=== PATIENT | male | born 2000 | race Caucasian/White ===

== ENCOUNTER 2023-09-05 22:43 | Emergency (ER) | payer OTHER, MEDICAID, SELFPAY ==
[2023-09-05 23:04] VITALS: BP 119/79; PULSE 72; RESP 16; TEMP 36.4; O2SAT 99; BMI 28.1
--- NOTE | 2023-09-05 23:10 | DI.RAD.S_ITS ---
PROCEDURE: XR SHOULDER RT MIN 2V INDICATIONS: right shoulder pain x 3 days TECHNIQUE: 3 views of the shoulder were acquired. COMPARISON: None. FINDINGS: Bones: No acute fractures or dislocations. No suspicious bony lesions. Visualized ribs appear intact. Soft tissues: No suspicious soft tissue calcifications. IMPRESSION: No acute osseous abnormality. If there is continued clinical concern or persistent symptoms, repeat radiographs or cross-sectional imaging (e.g. CT, MRI) may be helpful for further evaluation. Approved by: Isaak Beal M.D. on 09/05/2023 at 23:29
--- NOTE | 2023-09-06 00:43 | ED.EXTPRO ---
HPI - Extremity Problem General Chief complaint: Extremity Problem,Nontraumatic Stated complaint: Rt shoulder and back px Time Seen by Provider: 09/06/23 00:39 Source: patient Mode of arrival: Ambulatory History of Present Illness HPI Narrative: Patient is a healthy 23-year-old male who presents today with right shoulder pain. He reports it has been ongoing for last 2-3 days. He does not remember doing anything to it. He says it kind of aches he has no numbness tingling weakness. He does not like taking medications so he did not take any jxzy-rhi-cnvakym meds. He kept trying to pop it back in but it does not seem to be out. Related Data Home Medications Medication Instructions Recorded Confirmed No Known Home Medications 09/05/23 09/05/23 Allergies Allergy/AdvReac Type Severity Reaction Status Date / Time methylphenidate Allergy Unknown Verified 09/05/23 23:04 [From Definition 6] Patient History Social History Smoking Status: Current every day smoker Smoking Status: Current every day smoker tobacco type: vaping Substance Use Type: marijuana Exam Initial Vital Signs Initial Vital Signs: Vital Signs Temperature 97.6 F 09/05/23 23:04 Pulse Rate 72 09/05/23 23:04 Respiratory Rate 16 09/05/23 23:04 Blood Pressure 119/79 09/05/23 23:04 Pulse Oximetry 99 09/05/23 23:04 Oxygen Delivery Method Room Air 09/05/23 23:04 GENERAL: Well-appearing, well-nourished and in no acute distress. CARDIOVASCULAR: peripheral pulses in tact, cap refill <2 sec RESPIRATORY: No respiratory distress, speaks in full sentences without difficulty EXTREMITIES: Normal range of motion, no clubbing or edema. Neurovascularly intact Right shoulder able to touch left shoulder with right hand full range of motion sensation and deltoid intact reason meet and ulnar nerve sensation and motor intact good strong distal radial pulse no evidence of erythema or trauma NEUROLOGICAL: Cranial nerves II through XII grossly intact. Normal gait and speech. SKIN: Warm, dry, no petechiae, no rashes or lesions. Course Orders Ordered: ED Orders 09/05/23 23:10 XR shoulder RT min 2V Stat Vital Signs Vital signs: Vital Signs - 8 hr 09/05/23 23:04 09/06/23 01:00 Temperature 97.6 F Pulse Rate 72 70 Respiratory Rate 16 15 Blood Pressure 119/79 114/55 L Pulse Oximetry 99 98 Oxygen Delivery Method Room Air Room Air MDM - Extremity (Nontraumatic) Imaging Data Extremity x-ray #1: Radiologist's Impression: PROCEDURE: XR SHOULDER RT MIN 2V INDICATIONS: right shoulder pain x 3 days TECHNIQUE: 3 views of the shoulder were acquired. COMPARISON: None. FINDINGS: Bones: No acute fractures or dislocations. No suspicious bony lesions. Visualized ribs appear intact. Soft tissues: No suspicious soft tissue calcifications. IMPRESSION: No acute osseous abnormality. If there is continued clinical concern or persistent symptoms, repeat radiographs or cross-sectional imaging (e.g. CT, MRI) may be helpful for further evaluation. Approved by: Isaak Beal M.D. on 09/05/2023 at 23:29 [facility] Narrative Medical decision making narrative: Patient is a healthy 23-year-old male who presents today with right shoulder pain. Denies any injury he is currently sleeping but easily arousable. He has full range of motion minimally tender no swelling no erythema good sensation. No concern for septic joint x-ray has been reviewed and negative. I suspect some sort of sprain. Discharge Plan Departure Patient Disposition: Home Clinical Impression: Sprain of right shoulder Instructions: DI for Shoulder Pain Activity Restrictions/Additional Instructions: *You have been diagnosed with right shoulder sprain *What to do: At this time your x-ray is negative for fracture may ice 20-30 minutes at a time *Continue to take medications as directed Tylenol 1000 mg every 6 hours if needed for joof-lc-djfqlmjk pain Motrin 600 mg every 6 hours if needed for dzwi-di-wmplqhiq pain *Follow up with your primary care provider in 2-3 days or call [phone] *Return to ER if you should have increasing pain numbness tingling weakness or any new, worsening or concerning symptoms Prescriptions: No Action No Known Home Medications Referrals: Galo,MD Tino [Primary Care Provider] - Stand Alone Forms: Patient Portal/API
--- NOTE | 2023-09-06 00:58 | PC.NURSE ---
Pt has been dealing with chronic back pain for the last 2 years. Only going to ER for treatment, advised pt to follow up with his PCP to obtain a referral to a specialist. Currently pt takes muscle relaxers only.
[2023-09-06 01:00] VITALS: BP 114/55; PULSE 70; RESP 15; O2SAT 98
== END 2023-09-06 01:01 | disposition home or self-care (01) ==
PROVIDERS: Emergency Provider Emergency Medicine
DX: S43.401A Unspecified sprain of right shoulder joint, initial encounter (principal); X58.XXXA Exposure to other specified factors, initial encounter
CPT/HCPCS: 73030; 99281; 99283

== ENCOUNTER 2024-04-18 13:54 | Emergency (ER) | payer OTHER, SELFPAY ==
[2024-04-18 13:56] VITALS: BP 123/76; PULSE 82; RESP 16; TEMP 36.3; O2SAT 99; BMI 33.6
[2024-04-18 14:31] LABS: Appearance Urine UA CLEAR; Bilirubin Urine UA NEGATIVE (NEGATIVE); Color Urine UA YELLOW; Glucose Urine UA NEGATIVE (Negative); Ketones Urine UA NEGATIVE (NEGATIVE); Leukocyte Esterase Urine UA NEGATIVE (NEGATIVE); Nitrite Urine UA NEGATIVE (Negative); Occult Blood Urine UA TRACE-INTACT (Negative); Protein Urine UA NEGATIVE (Negative); Specific Gravity Urine UA 1.025 (1.000-1.035); Urobilinogen Urine UA 0.2 E.U./dL (0.2)
[2024-04-18 14:38] LABS: Bacteria Urine None Seen; Culture Indicated Urine Cult Not Indicated; RBC Urine 1-5/HPF (0-5/HPF); Squamous Epithelial Cell Urine None Seen (0-5/HPF); Urine Volume 10mL (spun); WBC Urine 1-5/HPF (0-5/HPF)
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
--- NOTE | 2024-04-18 15:04 | DI.US.S_ITS ---
PROCEDURE: US RENAL COMPLETE INDICATIONS: hematuria; l flank pain TECHNIQUE: Real-time scanning was performed of the kidneys and bladder, with image documentation. COMPARISON: None. FINDINGS: Kidneys: Kidneys are normal in size. Right kidney measures 10.7 cm long; left kidney measures 11.2 cm long. Right renal cortical thickness is 1.7 cm; left renal cortical thickness is 1.9 cm. Renal cortical echotexture is normal. No hydronephrosis or nephrolithiasis. No suspicious solid mass lesions. Bladder: Pre-void bladder volume is 10.2 mL. Pre-void images demonstrate no intraluminal masses or stones. On pre-void images, no ureteral jets are noted with color Doppler interrogation. (Of note, ureteral jets may not be detectable in up to 25% of cases due to insufficient differences in specific gravity between ureteral and bladder urine). Miscellaneous: No free pelvic fluid. IMPRESSION: Unremarkable ultrasound examination of bilateral kidneys and partially distended urinary bladder. Dictated by: Scott Penny M.D. on 04/18/2024 at 18:04 Approved by: Scott Penny M.D. on 04/18/2024 at 18:05
--- NOTE | 2024-04-18 15:04 | DI.RAD.S_ITS ---
PROCEDURE: XR KUB INDICATIONS: hematuria, l flank pain yesterday TECHNIQUE: One view of the abdomen acquired. COMPARISON: None. FINDINGS: Surgical changes and devices: None. Bowel: Bowel gas pattern is normal. Soft tissues: Within the pelvis bilaterally there are calcifications in the general region of the expected course of the distal ureters bilaterally. Those calcifications on the left are more prominent and may represent distal ureteral stones. Those on the right are likely phleboliths.. Visualized solid organ contours appear normal in size. Bones: No suspicious bony lesions. IMPRESSION: Asymmetric calcifications more suspicious at the lower left pelvis than that on the right. Ultrasound scanning is scheduled. CT scanning may become necessary for definitive diagnosis of distal ureteral stone as cause of this appearance. Dictated by: Parker Torres M.D. on 04/18/2024 at 15:26 Approved by: Parker Torres M.D. on 04/18/2024 at 15:27
[2024-04-18 15:56] LABS: Urine N gonorrhoeae NOT DETECTED
[2024-04-18 15:59] LABS: Urine Chlamydia NOT DETECTED
[2024-04-18 18:55] VITALS: BP 114/64; PULSE 74; RESP 15; O2SAT 100
== END 2024-04-18 18:56 | disposition home or self-care (01) ==
PROVIDERS: Emergency Medicine; Emergency Provider Physician Assistant
DX: R31.9 Hematuria, unspecified (principal); N34.2 Other urethritis; R10.9 Unspecified abdominal pain; F17.290 Nicotine dependence, other tobacco product, uncomplicated
CPT/HCPCS: 74018; 76770; 81001; 87491; 87591; 99281; 99283

== ENCOUNTER 2024-10-29 23:07 | Emergency (ER) | payer OTHER, SELFPAY ==
[2024-10-29 23:12] VITALS: BP 125/75; PULSE 77; RESP 18; TEMP 36.6; O2SAT 98; BMI 29.7
--- NOTE | 2024-10-29 23:20 | PC.NURSE ---
see triage note for details. pt aao x 3, mucous membranes moist, resp even and unlabored, pt laughing and joking in triage
--- NOTE | 2024-10-30 00:12 | ED_ITS ---
HPI - Nausea/Vomiting/Diarrhea General Chief complaint: Nausea/Vomiting/Diarrhea Stated complaint: n/v (abd pain) Time Seen by Provider: 10/30/24 00:04 Source: patient Mode of arrival: Ambulatory History of Present Illness HPI Narrative: Patient is a healthy 24-year-old male presenting today with vomiting and diarrhea. He reports a vomiting started today however he has had diarrhea off and on for about 2 weeks. Sometimes there is blood mixed in it. He has frequent liquidy stools every couple of days. Abdomen is sometimes tender. No one else is sick at home. He has not been traveling, no camping. He reports some dizziness lightheadedness but no passing out. Patient reports he has always had some blood in his stool for as long as he can remember. Related Data Previous Rx's ?Medication ?Instructions ?Recorded ondansetron 4 mg disintegrating 4 mg PO Q8H PRN nausea and 10/30/24 tablet vomiting #10 tabs Allergies Allergy/AdvReac Type Severity Reaction Status Date / Time methylphenidate (From Allergy Unknown Verified 09/05/23 23:04 Concerta) Patient History tobacco type: vaping Exam Initial Vital Signs Initial Vital Signs: Vital Signs Temperature 98 F 10/29/24 23:12 Pulse Rate 77 10/29/24 23:12 Respiratory Rate 18 10/29/24 23:12 Blood Pressure 125/75 10/29/24 23:12 Pulse Oximetry 98 10/29/24 23:12 Oxygen Delivery Method Room Air 10/29/24 23:12 GENERAL: Alert very well-appearing 24-year-old male and in no acute distress. HEENT: Head atraumatic,EOMI, pupils reactive, face symmetric, moist mucous membranes CARDIOVASCULAR: Regular rate and rhythm without murmurs, rubs or gallops. RESPIRATORY: Breath sounds equal bilaterally, no wheezes rales or rhonchi. ABDOMEN: Soft, nontender. Normoactive bowel sounds all 4 quadrants. No guarding or rebound. : No CVA tenderness EXTREMITIES: Normal range of motion, no clubbing or edema. Neurovascularly intact NEUROLOGICAL: Alert and oriented x4.Normal gait and speech. Cranial nerves II through XII grossly intact. SKIN: Warm, dry, no laceration, no petechiae, no rashes or lesions. Course Orders Ordered: ED Orders 10/30/24 00:50 CBC Auto Diff [Complete Blood Count AUTO DIFF] Stat CMP [Comprehensive Metabolic Panel] Stat Discontinued Medications Ondansetron HCl (Ondansetron 4 Mg/2 Ml Inj) 4 mg IV NOW ONE Stop: 10/30/24 00:26 Last Admin: 10/30/24 00:41 Dose: 4 mg Documented By: SHAVONNE Vital Signs Vital signs: Vital Signs - 8 hr 10/29/24 23:12 10/30/24 02:03 Temperature 98 F Pulse Rate 77 64 Respiratory Rate 18 18 Blood Pressure 125/75 109/58 L Pulse Oximetry 98 100 Oxygen Delivery Method Room Air Room Air MDM - Nausea/Vomiting/Diarrhea Lab Data 10/30/24 00:50 10/30/24 00:50 Labs: Lab Results 10/30/24 Range/Units 00:50 WBC 9.1 (4.5-11.0) X10^3/uL RBC 4.72 (4.5-5.9) X10^6/uL Hgb 14.2 (13.5-17.5) g/dL Hct 40.7 L (41-53) % MCV 86.2 (80-100) fL MCH 30.2 (26-34) PG MCHC 35.0 (30-36) % RDW 13.3 (11.6-14.8) % Plt Count 242 (150-400) X10^3/uL Neut % (Auto) 49.1 L (50-75) % Lymph % (Auto) 34.4 (25-40) % [place] % (Auto) 10.0 (3-14) % Eos % (Auto) 5.5 H (2-4) % Baso % (Auto) 1.0 (0-2) % Neut # (Auto) 4400 (2789-6007) /uL Lymph # (Auto) 3100 (6625-7463) /uL [place] # (Auto) 900 (0-900) /uL Eos # (Auto) 500 H (0-450) /uL Baso # (Auto) 100 (0-100) /uL Sodium 139 (137-145) mmol/L Potassium 3.8 (3.4-5.1) mmol/L Chloride 104 (98-107) mmol/L Carbon Dioxide 25 (22-32) mmol/L BUN 10 (9-20) mg/dL Creatinine 0.84 (0.66-1.25) mg/dL Estimated GFR > 60 (>60) mL/min BUN/Creatinine Ratio 11.9 (6-22) Glucose 87 (70-99) mg/dL Calcium 9.0 (8.4-10.2) mg/dL Total Bilirubin 0.3 (0.2-1.3) mg/dL AST 36 (17-59) IU/L ALT 38 (<50) IU/L Alkaline Phosphatase 68 (38-126) U/L Total Protein 7.4 (6.3-8.2) g/dL Albumin 4.4 (3.5-5.0) g/dL Globulin 3.0 (1.7-4.1) g/dL Albumin/Globulin Ratio 1.5 (1.0-2.8) MDM Narrative Medical decision making narrative: Patient is a well-appearing 24-year-old male who presents today with ongoing diarrhea vomiting. He has no fever no chills. Abdomen is soft nontender no peritoneal signs. Vitals are stable. Blood work has been reviewed no leukocytosis no anemia no electrolyte abnormality no JOHNATHON no evidence of dehydration Patient has not had a bowel movement here in the ED no GI panel collected At this time no need for any kind of imaging. Discussed at length with patient need for outpatient follow-up and outpatient colonoscopy especially if he continues to have bloody stool. This started no need for any further ED evaluation Differential diagnosis includes bacterial gastroenteritis viral gastroenteritis inflammatory bowel disease colon cancer polyps Discharge Plan Departure Patient Disposition: Home Clinical Impression: Gastroenteritis Instructions: DI for Viral Gastroenteritis -- Adult Activity Restrictions/Additional Instructions: *You have been diagnosed with gastritis *What to do: At this time I do recommend an outpatient colonoscopy. If you can give a stool sample with your primary that might also be indicated. *Continue to take medications as directed Tylenol Motrin as needed Zofran 4 mg every 8 hours if needed for nausea or vomit *Follow up with your primary care provider in 2-3 days or call [phone] *Return to ER if you should have increasing abdominal pain nausea vomiting diarrhea or any new, worsening or concerning symptoms Prescriptions: New ondansetron 4 mg tablet,disintegrating 4 mg PO Q8H PRN (Reason: nausea and vomiting) Qty: 10 0RF Referrals: Miscellaneous,Doctor[facility] [Primary Care Provider, Medical] Stand Alone Forms: Patient Portal/API
[2024-10-30] MEDS: ONDANSETRON 4 MG/2 ML INJ IV (00:41)
[2024-10-30 00:59] LABS: Add Manual Diff / Slide Review NO; Hematocrit 40.7 % (41-53); Hemoglobin 14.2 g/dL (13.5-17.5); Lymphocytes Absolute Auto 3100 /uL (1100-4500); Mean Corpuscular HGB Conc 35.0 % (30-36); Mean Corpuscular Hemoglobin 30.2 PG (26-34); Mean Corpuscular Volume 86.2 fL (80-100); Platelet Count 242 X10^3/uL (150-400)
[2024-10-30 01:42] LABS: Alanine Aminotransferase 38 IU/L (<50); Albumin 4.4 g/dL (3.5-5.0); Albumin Globulin Ratio 1.5 (1.0-2.8); Alkaline Phosphatase 68 U/L (38-126); Blood Urea Nitrogen 10 mg/dL (9-20); Calcium 9.0 mg/dL (8.4-10.2); Carbon Dioxide 25 mmol/L (22-32); Chloride 104 mmol/L (98-107); Estimated Glomerular Filt Rate > 60 mL/min (>60); Globulin 3.0 g/dL (1.7-4.1); Glucose 87 mg/dL (70-99); HEMOLYSIS < 15 (0-50); Potassium 3.8 mmol/L (3.4-5.1); Sodium 139 mmol/L (137-145); Total Protein 7.4 g/dL (6.3-8.2)
[2024-10-30 02:03] VITALS: BP 109/58; PULSE 64; RESP 18; O2SAT 100
== END 2024-10-30 02:07 | disposition home or self-care (01) ==
PROVIDERS: Emergency Provider Emergency Medicine
DX: K52.9 Noninfective gastroenteritis and colitis, unspecified (principal)
CPT/HCPCS: 36415; 80053; 85025; 96374; 99284; J2405

== ENCOUNTER 2024-11-27 19:51 | Emergency (ER) | payer OTHER, SELFPAY ==
[2024-11-27 19:54] VITALS: BP 145/78; PULSE 85; RESP 17; TEMP 36.6; O2SAT 97; BMI 32.8
--- NOTE | 2024-11-27 20:23 | PC.NURSE ---
pt c/o diffuse abd pain with the worse in the lower abd, this has been an on going problem for the pt he has been to the ED and to [facility] without any dx pt has been referred to a GI dr but has not heard back about an apt he does not have a PCP and is unable to get an apt for months, so he goes to the [facility], pt was told when he was about 15 that he might have Chrons but was never tested for it. pt has intermittent abd pain, with diarrhea eating will cause the diarrhea but it does not matter what he eats. pt was seen here about a month ago for the same and was told he had gastroenteritis only labs were done no radiology, and the problem has continued
[2024-11-27 20:25] LABS: Add Manual Diff / Slide Review NO; Hematocrit 41.1 % (41-53); Hemoglobin 14.2 g/dL (13.5-17.5); Lymphocytes Absolute Auto 1500 /uL (1100-4500); Mean Corpuscular HGB Conc 34.6 % (30-36); Mean Corpuscular Hemoglobin 29.9 PG (26-34); Mean Corpuscular Volume 86.6 fL (80-100); Platelet Count 264 X10^3/uL (150-400)
[2024-11-27 20:36] LABS: Alanine Aminotransferase 40 IU/L (<50); Albumin 4.4 g/dL (3.5-5.0); Albumin Globulin Ratio 1.4 (1.0-2.8); Alkaline Phosphatase 79 U/L (38-126); Blood Urea Nitrogen 10 mg/dL (9-20); Calcium 8.7 mg/dL (8.4-10.2); Carbon Dioxide 18 mmol/L (22-32); Chloride 107 mmol/L (98-107); Estimated Glomerular Filt Rate > 60 mL/min (>60); Globulin 3.1 g/dL (1.7-4.1); Glucose 154 mg/dL (70-99); HEMOLYSIS < 15 (0-50); Lipase 52 U/L (23-300); Potassium 3.6 mmol/L (3.4-5.1); Sodium 137 mmol/L (137-145); Total Protein 7.5 g/dL (6.3-8.2)
--- NOTE | 2024-11-27 21:00 | ED_ITS ---
HPI - Abdominal Pain General Chief Complaint: Abdominal Pain Stated Complaint: abd pain x 3 weeks Time Seen by Provider: 11/27/24 20:59 Source: patient Mode of arrival: Ambulatory History of Present Illness HPI narrative: 24-year-old male reports ongoing abdominopelvic problems and chronic diarrhea. Reports multiple presentations to [facility] where he was given pill medications and had labs done but does not recall any specific abdominal imaging. Has had ongoing loose stools for many months, no black or red or mucoid component. Seen exposure to antibiotics. Does not recall any specific diagnosis of Crohn's disease, ulcerative colitis, irritable bowel syndrome, no prior upper or lower endoscopy evaluations. Has given stool specimens in the past that have reportedly been negative. No change in diet apparently attempted to see if it would improve diarrheal or abdominal discomfort symptoms. No fevers or chills. No painful or frequent urination. No nausea or vomiting. No chest pain or shortness of breath. They had worsening of symptoms over the last 3 weeks, decided that he should get checked out now, not particularly worse today or yesterday. Related Data Previous Rx's ?Medication ?Instructions ?Recorded ondansetron 4 mg disintegrating 4 mg PO Q8H PRN nausea and 10/30/24 tablet vomiting #10 tabs Allergies Allergy/AdvReac Type Severity Reaction Status Date / Time methylphenidate (From Allergy Unknown Verified 11/27/24 19:54 Concerta) Patient History Social History Smoking Status: Current every day smoker Smoking Status: Current every day smoker tobacco type: vaping Exam Narrative Exam Narrative: GENERAL: Well-developed patient, in mild distress. HEAD: Atraumatic. Normocephalic. EYES: Pupils equal round and reactive. Extraocular motions intact. No scleral icterus. No injection or drainage. ENT: Nose without bleeding, purulent drainage. Throat without erythema, tonsillar hypertrophy or exudate. Airway patent. NECK: Trachea midline. Non tender CARDIOVASCULAR: Regular rate and rhythm without murmurs, gallops, or rubs. RESPIRATORY: Clear to auscultation. Breath sounds equal bilaterally. No wheezes, rales, or rhonchi. GASTROINTESTINAL: Abdomen soft, non-tender, nondistended. EXTREMITIES: No edema or joint tenderness. BACK: Nontender without deformity or crepitance. No flank tenderness. NEURO: AOx3. Motor functions grossly nonfocal. SKIN: No rash or erythema of visible areas Initial Vital Signs Initial Vital Signs: Vital Signs Temperature 98 F 11/27/24 19:54 Pulse Rate 85 11/27/24 19:54 Respiratory Rate 17 11/27/24 19:54 Blood Pressure 145/78 H 11/27/24 19:54 Pulse Oximetry 97 11/27/24 19:54 Oxygen Delivery Method Room Air 11/27/24 19:54 Course Orders Ordered: ED Orders 11/27/24 20:59 CT abdomen pelvis w con Stat Discontinued Medications Ondansetron HCl (Ondansetron 4 Mg/2 Ml Inj) 4 mg IV NOW PRN PRN Reason: Nausea And Vomiting Ondansetron HCl (Ondansetron 4 Mg Odt) 4 mg PO NOW PRN PRN Reason: Nausea And Vomiting Vital Signs Vital signs: Vital Signs - 8 hr 11/28/24 01:01 Pulse Rate 70 Respiratory Rate 18 Blood Pressure 117/77 Pulse Oximetry 100 Oxygen Delivery Method Room Air MDM - Abdominal Pain Lab Data Attestation: I reviewed the patient's lab results. Lab results narrative: White blood cell count 5900, hemoglobin 14.2, platelets adequate. Glucose 154. Normal renal function, electrolytes. Serum CO2 18 decreased. Liver functions and lipase normal. 11/27/24 20:10 11/27/24 20:10 Labs: Lab Results 11/27/24 Range/Units 20:10 WBC 5.9 (4.5-11.0) X10^3/uL RBC 4.75 (4.5-5.9) X10^6/uL Hgb 14.2 (13.5-17.5) g/dL Hct 41.1 (41-53) % MCV 86.6 (80-100) fL MCH 29.9 (26-34) PG MCHC 34.6 (30-36) % RDW 12.8 (11.6-14.8) % Plt Count 264 (150-400) X10^3/uL Neut % (Auto) 59.0 (50-75) % Lymph % (Auto) 25.5 (25-40) % [place] % (Auto) 8.1 (3-14) % Eos % (Auto) 6.7 H (2-4) % Baso % (Auto) 0.7 (0-2) % Neut # (Auto) 3500 (4518-4587) /uL Lymph # (Auto) 1500 (1897-9929) /uL [place] # (Auto) 500 (0-900) /uL Eos # (Auto) 400 (0-450) /uL Baso # (Auto) 0 (0-100) /uL Sodium 137 (137-145) mmol/L Potassium 3.6 (3.4-5.1) mmol/L Chloride 107 (98-107) mmol/L Carbon Dioxide 18 L (22-32) mmol/L BUN 10 (9-20) mg/dL Creatinine 0.78 (0.66-1.25) mg/dL Estimated GFR > 60 (>60) mL/min BUN/Creatinine Ratio 12.8 (6-22) Glucose 154 H (70-99) mg/dL Calcium 8.7 (8.4-10.2) mg/dL Total Bilirubin 0.4 (0.2-1.3) mg/dL AST 32 (17-59) IU/L ALT 40 (<50) IU/L Alkaline Phosphatase 79 (38-126) U/L Total Protein 7.5 (6.3-8.2) g/dL Albumin 4.4 (3.5-5.0) g/dL Globulin 3.1 (1.7-4.1) g/dL Albumin/Globulin Ratio 1.4 (1.0-2.8) Lipase 52 (23-300) U/L Imaging Data CT scan - abdomen/pelvis: Radiologist's Impression: [address] [address] [address] Scan Report Signed Patient: Trace Kelly MR#: [id number] : 2000 Acct:[id number] Age/Sex: 24 / M Date of Service: 11/27/24 Loc: ED Accession Number: [id number] Procedure: CT abdomen pelvis w con Ordering Provider: Arnold Mcmahan MD PROCEDURE: CT ABDOMEN PELVIS W CON INDICATIONS: abd pain TECHNIQUE: After the administration of intravenous contrast, axial sections acquired from the lung bases to the pubic symphysis. Coronal and sagittal reformats were performed. For radiation dose reduction, the following was used: automated exposure control, adjustment of mA and/or kV according to patient size. COMPARISON: [facility], [place], US RENAL COMPLETE, 04/18/2024, 17:22. FINDINGS: Image quality: Diagnostic. Lower Chest: No significant findings. ABDOMEN: Liver: No solid mass. Gallbladder: No radiopaque gallstones or wall thickening. Biliary ducts: No biliary dilation. Pancreas: No ductal dilation. Spleen: Size is within normal limits. Adrenal Glands: No adrenal nodules. Kidneys and Ureters: No hydronephrosis. No solid mass. No complex renal cystic lesion which requires follow up. Stomach and Bowel: Normal colonic caliber, without significant wall thickening. Normal appendix. No small bowel obstruction. Peritoneum: No abnormal intraperitoneal fluid. No free air. Ventral Wall: No significant ventral hernia. Abdominal Nodes: No retroperitoneal or mesenteric adenopathy by size criteria. Vessels: Aorta and inferior vena cava are normal in size. PELVIS: Pelvic Organs: Unremarkable. Bladder: No bladder wall thickening, accounting for underdistention. Pelvic Nodes: No enlarged lymph nodes. Miscellaneous: No inguinal hernias are seen. Bones: No aggressive osseous abnormality. IMPRESSION: No acute abnormality. Normal appendix. Dictated by: Enzo Lin M.D. on 11/27/2024 at 23:31 Approved by: Enzo Lin M.D. on 11/27/2024 at 23:34 MDM Narrative Medical decision making narrative: 24-year-old male with ongoing abdominopelvic problems that sound chronic, no specific diagnosis, no gastroenterology consultation, worsening crampy abdominal pain for 3 weeks, ongoing loose stools without black or red component. No prior imaging. Labs pending. DDx consider chronic underlying inflammatory bowel disease, acute enteritis, colitis, diverticulitis, irritable bowel syndrome, other. Declines pain medications. Stool specimen for pathogens requested if any specimen obtained. Lab data: White blood cell count 5900, hemoglobin 14.2, platelets adequate. Glucose 154. Normal renal function, electrolytes. Serum CO2 18 decreased. Liver functions and lipase normal. CT abdomen and pelvis with IV contrast, no acute changes. See radiology report. Patient provided copy of CT report. Further workup as an outpatient for now. Follow up with Gastroenterology as planned. Discharged home with family. Return precautions discussed. Discharge Plan Departure Patient Disposition: Home Clinical Impression: Abdominal pain, Diarrhea Activity Restrictions/Additional Instructions: Ongoing diarrhea of unclear cause, intermittent abdominal pain with no specific diagnosis, awaiting Gastroenterology specialist consultation. No abdominal imaging recalled. Screening labs generally were unremarkable today. Stool specimen was obtained for lab testing but apparently this has been done in the past without any specific diagnosis per your report. CT abdomen and pelvis imaging was done today, no acute changes were noted, report printed and provided to you for discharge. Follow up with the Gastroenterology as planned. Take Tylenol as needed for crampy abdominal pain. Encouraged hydration. Consider writing and keeping a GI/food diary in anticipation of your gastroenterology consultation, consider keeping track of what your eating and drinking during the days, and what your abdominal/GI symptoms seemed to be, to see if there is any food allergy or class of foods (dairy products, gluten, carbonated beverages, acidic foods, other) that seemed to be correlating most with your symptoms, if any. Return earlier to this/nearest emergency department for any change worsening symptoms or any concerns prior. Prescriptions: No Action ondansetron 4 mg tablet,disintegrating 4 mg PO Q8H PRN (Reason: nausea and vomiting) Qty: 10 0RF Stand Alone Forms: Patient Portal/API
--- NOTE | 2024-11-27 23:52 | PC.NURSE ---
leg bag placed on pt with instructions given to and pt with verbalization of understanding
[2024-11-28 01:01] VITALS: BP 117/77; PULSE 70; RESP 18; O2SAT 100
== END 2024-11-28 01:02 | disposition home or self-care (01) ==
PROVIDERS: Emergency Provider Emergency Medicine
DX: R10.13 Epigastric pain (principal); R19.7 Diarrhea, unspecified
CPT/HCPCS: 36415; 74177; 80053; 83690; 85025; 99283; 99284; Q9967